=== PATIENT | female | born 1980 | race African-American/Black ===

== ENCOUNTER 2017-12-12 12:19 | Emergency (ER) | payer OTHER ==
[~2017-12-12] VITALS: Ht 175.3 cm; Wt 81.6 kg
[~2017-12-12 12:19] MED LIST: MECL-102 PO; SULF1TAB48 PO
[2017-12-12 12:21] VITALS: BP 160/113
[2017-12-12] MEDS ORDERED: ACETAMINOPHEN ES 500 MG TABLET ONE (12:54)
[2017-12-12] MEDS ORDERED: ACETAMINOPHEN 325 MG TABLET PO ONE (13:00)
== END 2017-12-12 12:59 | disposition home or self-care (01) ==
LOC: ER 12:20
DX: K08.89 Other specified disorders of teeth and supporting structures (principal); Z98.51 Tubal ligation status
CPT/HCPCS: 99283; A4606; Z7610

== ENCOUNTER 2023-01-05 11:00 | Emergency (ER) | payer OTHER ==
[~2023-01-05] VITALS: Ht 170.2 cm; Wt 97.5 kg
[~2023-01-05 11:00] MED LIST changes: -MECL-102 PO; +MECL-159 PO
--- NOTE | 2023-01-05 11:11 | NUR ---
I have vaginal bleeding/clots. Started 12/23 Heavy last wednesday LMP 11/04
--- NOTE | 2023-01-05 11:20 | NUR ---
URINE COLLECTED AND SENT
[2023-01-05 12:33] LABS: BILIRUBIN,URINE NEGATIVE (NEGATIVE); COLOR,URINE YELLOW (YELLOW); LEUKOCYTE ESTERASE ,URINE NEGATIVE (NEGATIVE); NITRITE, URINE NEGATIVE (NEGATIVE); PROTEIN,URINE 1+ mg/dl (NEGATIVE); UGLUCOSE NEGATIVE (NEGATIVE); UROBILINOGEN,URINE 0.2 EU/dL (0.2)
[2023-01-05 12:35] LABS: BASOPHILS # (AUTO) 0.1 K/uL (0.0-0.2); EOSINOPHILS % (AUTO) 0.4 % (0.0-6.0); HEMATOCRIT 40 % (33-45); HEMOGLOBIN 12.6 g/dL (11.5-14.8); LYMPHOCYTES # (AUTO) 2.2 K/uL (0.8-4.8); LYMPHOCYTES % (AUTO) 40.4 % (20.0-44.0); MEAN CORPUSCULAR HGB CONC 32 g/dl (31.0-36.0); MEAN CORPUSCULAR VOLUME 88 fL (82-100); MONOCYTES # (AUTO) 0.4 K/uL (0.1-1.30); MONOCYTES % (AUTO) 7.1 % (2.0-12.0); NEUTROPHILS # (AUTO) 2.7 K/uL (1.8-8.9); NEUTROPHILS % (AUTO) 51.1 % (43.0-81.0); PLATELET COUNT (AUTO) 263 K/uL (150-450); RED BLOOD CELL COUNT(AUTO) 4.48 MIL/uL (4.0-5.2); WHITE BLOOD COUNT (AUTO) 5.4 K/uL (4.3-11.0)
[2023-01-05 12:52] LABS: ALBUMIN 3.8 g/dL (3.4-5.0); BILIRUBIN,DIRECT 0.1 mg/dL (0.0-0.2); BILIRUBIN,TOTAL 0.7 mg/dL (0.2-1.0); CALCIUM, SERUM 8.7 mg/dL (8.5-10.1); CREATININE 0.7 mg/dL (0.6-1.3); POTASSIUM 3.7 mmol/L (3.5-5.1); TOTAL PROTEIN, SERUM 7.4 g/dL (6.4-8.2)
[2023-01-05 13:23] LABS: RBC,URINE 51-80 /HPF (0-2)
[2023-01-05 13:24] LABS: BACTERIA,URINE FEW /HPF (None Seen); SQUAMOUS EPITHELIAL CELL,UR FEW /HPF (None Seen); URIC ACID CRYSTALS,URINE Moderate /HPF (None Seen)
--- NOTE | 2023-01-05 13:44 | NUR ---
Patient discharged to home in stable condition. Written and verbal after care instructions given. Patient verbalizes understanding of instruction.
[2023-01-05 13:46] VITALS: BP 144/71
== END 2023-01-05 13:46 | disposition home or self-care (01) ==
LOC: ER 11:05
DX: N93.9 Abnormal uterine and vaginal bleeding, unspecified (principal); Z98.890 Other specified postprocedural states; Z79.899 Other long term (current) drug therapy
CPT/HCPCS: 36415; 76856-TC; 80048-TC; 80076-TC; 81001; 84702-TC; 85025-TC; 85730-TC; 86850-TC